=== PATIENT | female | born 1995 | race Caucasian/White ===

== ENCOUNTER 2021-09-14 12:03 | Outpatient (CLI) | payer OTHER ==
[~2021-09-14 12:03] MED LIST: BUPROPION XL150 MG PO; FEROSUL325 MG PO; FLONASE 0.05% N16 GM; FLUOXETINE HCL40 MG PO; MONTELUKAST SOD10 MG PO; PRENATAL VITAM1 EAC8 PO; VENTOLIN HFA 66.7 GM INH
== END 2021-09-16 08:51 | disposition home or self-care (01) ==
LOC: GENOP 12:03
DX: O47.02 False labor before 37 completed weeks of gestation, second trimester (principal); Z3A.23 23 weeks gestation of pregnancy; O26.852 Spotting complicating pregnancy, second trimester; O99.512 Diseases of the respiratory system complicating pregnancy, second trimester; O99.342 Other mental disorders complicating pregnancy, second trimester; J45.909 Unspecified asthma, uncomplicated; F41.0 Panic disorder [episodic paroxysmal anxiety]; O99.012 Anemia complicating pregnancy, second trimester; D64.9 Anemia, unspecified
CPT/HCPCS: 81001; 96360; 96361; 96365; 96367; 96372; J0696; J0702; J3105; J7120

== ENCOUNTER 2021-12-08 22:23 | Inpatient (IN) | payer OTHER ==
[~2021-12-08] VITALS: Ht 165.1 cm; Wt 61.2 kg
[2021-12-09 12:28] LABS: RED BLOOD COUNT 3.78 M/UL (4.00-5.10)
[2021-12-09] MEDS ORDERED: IBUPROFEN600 MG PO (15:48)
[2021-12-09] MEDS ORDERED: COLACE 100MG C100 MG PO (15:48)
[2021-12-10 07:40] LABS: HEMOGLOBIN 10.5 gm/dl (12.3-15.3)
== END 2021-12-11 19:43 | disposition home or self-care (01) | DRG 805 ==
LOC: GENOP 22:23 → OB 12-09 12:16
PROVIDERS: ADMIT Obstetrics & Gynecology
PROC: 10E0XZZ Delivery of Products of Conception, External Approach (ICD-10-PCS; principal; 2021-12-09)
PROC: 10907ZC Drainage of Amniotic Fluid, Therapeutic from Products of Conception, Via Natural or Artificial Opening (ICD-10-PCS; 2021-12-09)
PROC: 3E0234Z Introduction of Serum, Toxoid and Vaccine into Muscle, Percutaneous Approach (ICD-10-PCS; 2021-12-09)
DX: O86.20 Urinary tract infection following delivery, unspecified (principal); O60.14X0 Preterm labor third trimester with preterm delivery third trimester, not applicable or unspecified; Z37.0 Single live birth; O99.02 Anemia complicating childbirth; D64.9 Anemia, unspecified; O99.344 Other mental disorders complicating childbirth; Z20.822 Contact with and (suspected) exposure to COVID-19; O99.52 Diseases of the respiratory system complicating childbirth; J45.909 Unspecified asthma, uncomplicated; F41.0 Panic disorder [episodic paroxysmal anxiety]; Z3A.36 36 weeks gestation of pregnancy; Z23 Encounter for immunization
CPT/HCPCS: 36415; 81001; 83518; 85014; 85018; 85025; 90715; J0696; J2590; J7120; U0002